=== PATIENT | female | born 1955 | race Hispanic/Latino ===

== ENCOUNTER → 2017-09-26 | Day surgery (SDC) | payer OTHER ==
[~2017-09-26] MED LIST: FENTANYL CITRATE/PF 100MCG/2 ML INJ ONE; FISH OIL 1,0001 EAC3 PO; HYDROCHLOROTHIA25 MG PO; HYOSCYAMINE SULFATE 0.5 MG/ML AMP ONE; LIDOCAINE HCL 2% LOCAL INJ 5 ML SDV VIAL INJ ONE; LOSARTAN POTASS25 MG PO; MIDAZOLAM HCL 2 MG/2 ML VIAL ONE; PROBIOTIC & AC1 EACH PO; PROPOFOL IV EMULSION 10 MG/ML 50 ML VIAL ONE
== END | disposition home or self-care (01) ==
LOC: OR 09:06
PROVIDERS: ATTEND Internal Medicine Gastroenterology
DX: Z12.11 Encounter for screening for malignant neoplasm of colon (principal); D12.2 Benign neoplasm of ascending colon; D12.8 Benign neoplasm of rectum; K29.70 Gastritis, unspecified, without bleeding; K63.9 Disease of intestine, unspecified; K44.9 Diaphragmatic hernia without obstruction or gangrene; K57.30 Diverticulosis of large intestine without perforation or abscess without bleeding; K64.8 Other hemorrhoids; F41.9 Anxiety disorder, unspecified; I10 Essential (primary) hypertension; Z01.810 Encounter for preprocedural cardiovascular examination; Z68.41 Body mass index [BMI] 40.0-44.9, adult
CPT/HCPCS: 43239; 45380; 45384; 45385; 93005; J1980; J2001; J2250